=== PATIENT | female | born 1980 | race Caucasian/White ===

== ENCOUNTER 2024-01-22 23:14 | Emergency (ER) | payer SELFPAY ==
[2024-01-22 23:23] VITALS: BP 136/90; PULSE 80; RESP 16; TEMP 36.9; O2SAT 98; BMI 35.4
--- NOTE | 2024-01-22 23:51 | CRLHL7_ITS ---
For Patients: As a result of the Century Cures Act, medical imaging exams and procedure reports are released immediately into your electronic medical record. You may view this report before your referring provider. If you have questions, please contact your health care provider. Indication: Dizziness Technique: Noncontrast CT through the head with multiplanar reformats Comparison: None Findings: Brain: No acute hemorrhage. No acute infarct. No significant mass effect or midline shift. No gross evidence of a mass lesion or cerebral edema. Ventricles: No acute abnormality appreciated. Orbits, sinuses, mastoids: No acute abnormality appreciated. Calvarium and soft tissues: No acute abnormality appreciated. Impression: No acute abnormality appreciated. Please note that all CT scans at this facility use dose modulation, iterative reconstruction, and/or weight-based dosing when appropriate to reduce radiation dose to as low as reasonably achievable. Dictated by Gaetano Washington MD @ 01/23/2024 1:25:38 AM (Electronically Signed)
--- NOTE | 2024-01-22 23:57 | ED_ITS ---
HPI - General Adult General Date Seen: 01/22/24 Chief complaint: Neuro Symptoms/Altered Deficit Stated complaint: Nausea, blurred vision, dizzy Time Seen by Provider: 01/22/24 23:51 History of Present Illness HPI narrative: 43-year-old female presenting to the ER today with her for feeling dizzy, lightheaded and having splotchy spots in front of her eyes. She is generally healthy but she has a family history of diabetes in her mother and her grandmother. She has been under some stress lately. She and her own home here in [place]. About a year ago they moved to [place] for new jobs and a been renting there. However her job isn't working also they are moving back here in [place]. They been doing a lot a work on their house as they are moving back in. She notes that she had an anxiety attack a few days ago. This morning she was feeling fine. She and her working on the house. They went to [employer] [facility] and had a little bit a lunch. However after that at about 2:00 p.m. she started feeling dizzy and shaky. She was not having any seizure activity but she just felt little bit shaky in her body. She has had episodes like this in the past off and on for the past 6 months thought that she might have low blood sugar. She ate but did not feel any better. By about 4:00 p.m. in addition to feeling a little bit shaky she also is having some blotchy vision in front of her eyes. She says her sometimes she sees spots and motor I, ?like when you look at a bright light and then look away. ?. She is not having any headache. No vision loss. No nausea. No palpitations. No chest pain. No cough. No shortness of breath. No fever. No abdominal pain. No back pain. Urination has been normal. No swelling in her arms or legs. No rashes. No focal numbness or weakness. PFSH PFS Social History Smoking Status: Never smoker Do you use any of these nicotine containing products: None How often do you have a drink containing alcohol: never AUDIT-C Alcohol total score: 0 Non-prescribed substance use: denies use service: No Exam Narrative: Exam Narrative: Constitutional: Appears well-developed and well-nourished. Alert. Conversant. Non toxic. Very polite. HENT: Head: Atraumatic. Nose: Nose normal. Mouth/Throat: Oral mucosa is clear and moist. no trismus. Pharynx normal. Eyes: Conjunctivae normal. EOM normal. Pupils equal, round, and reactive to light. No scleral icterus. Neck: Normal range of motion. Neck supple. No tracheal deviation present. No JVD Cardiovascular: Normal rate, regular rhythm. No gallop. No friction rub. No murmur heard. Symmetric radial artery pulses Pulmonary/Chest: Effort normal. No stridor. No respiratory distress. No wheezes. No rales. No rhonchi . No tenderness. Abdominal: Soft. Bowel sounds normal. No distension. No mass. No tenderness. No rebound. No guarding. Musculoskeletal: RUE: Normal range of motion. No tenderness. No deformity LUE: Normal range of motion. No tenderness. No deformity RLE: Normal range of motion. No edema. No tenderness. No deformity LLE: Normal range of motion. No edema. No tenderness. No deformity Lymph: No cervical adenopathy. Neurological: Mental status normal. Attention normal. Alert and oriented x3. GCS 15. Memory normal. Speech fluent. Cognition normal. Cranial Nerves intact II-XII except I did not formally test gag or visual acuity. EOMI. Palate elevates symmetrically and tongue protrudes in the midline. Strength: 5/5 trapezius on the right and left 5/5 deltoid on the right and left 5/5 biceps on the right and left 5/5 triceps on the right and left 5/5 policy writer on the right and left 5/5 thumb opposition on the right and le ft 5/5 finger abduction on the right and le ft 5/5 hip flexors (L3) on the right and le ft 5/5 quadriceps (L4) on the right and lef t 5/5 tibialis anterior on the right and l eft 5/5 EHL (L5) on the right and left 5/5 gastrocnemius (S1) on the right and left 5/5 hamstring on the right and left Sensation intact to light touch in both upper extremities (C4-T1) Sensation intact to light touch in Both lower extremities (L4-S1). Finger to nose and coordination normal. Gait normal. Skin: Skin is warm and dry. No rash noted. No pallor. Normal capillary refill. Psychiatric: Normal mood. Normal affect. Endorses some stress lately as [place]. She thinks she had a panic attack a few days ago but today symptoms are dissimilar from that. Const: Vital Signs, click to edit/add: Vital Signs - 24 hr 01/22/24 23:23 Temperature 98.4 F Pulse Rate [Right Radial] 80 Respiratory Rate 16 Blood Pressure [Ri ght Upper Arm] 136/90 H Pulse Oximetry 98 Oxygen Delivery Me thod Room Air Course Vital Signs Vital signs: Initial Vital Signs Temperature 98.4 F 01/22/24 23:23 Temperature Source Temporal Artery Scan 01/22/24 23:23 Pulse Rate 80 01/22/24 23:23 Pulse Rhythm Regular 01/22/24 23:23 Respiratory Rate 16 01/22/24 23:23 Blood Pressure 136/90 H 01/22/24 23:23 Blood Pressure Mean 105 01/22/24 23:23 Pulse Oximetry 98 01/22/24 23:23 Oxygen Delivery Method Room Air 01/22/24 23:23 Vital Signs Temperature 98.4 F 01/22/24 23:23 Pulse Rate 80 01/22/24 23:23 Respiratory Rate 16 01/22/24 23:23 Blood Pressure 136/90 H 01/22/24 23:23 Pulse Oximetry 98 01/22/24 23:23 Oxygen Delivery Method Room Air 01/22/24 23:23 Temperature 98.4 F 01/22/24 23:23 Pulse Rate 80 01/22/24 23:23 Respiratory Rate 16 01/22/24 23:23 Blood Pressure 136/90 H 01/22/24 23:23 Pulse Oximetry 98 01/22/24 23:23 Oxygen Delivery Method Room Air 01/22/24 23:23 Medical Decision Making MDM Narrative Medical decision making narrative: Pleasant 43-year-old female presenting to the ER today with shakiness, generalized weakness, feeling somewhat lightheaded, also with blotchy spots in front of the vision of both of her eyes. Differential is broad. She has no hypoglycemia. Glucose is 178 on a grand check. This is not a fasting glucose. Differential would include electrolyte disturbance, anemia. She is not having any clear fever but consider possible infection. Also consider coronary arrhythmia or ischemia. No focal deficits to suggest stroke. She is not having any nystagmus on my exam or ataxia to suggest a cerebellar infarct. However with the visual symptoms and neuro symptoms will obtain head CT. Discussed with my partner Dr. Drummond who will follow-up on the results of her workup. Clinical impression 1. Dizziness
[2024-01-23 00:21] LABS: Appearance Urine Clear (Clear); Bilirubin Urine Negative (Negative); Blood Urine Negative (Negative); Color Urine Yellow (Yellow); Glucose Urine Negative (Negative); Ketones Urine Negative (Negative); Leukocyte Esterase Urine Negative (Negative); Nitrite Urine Negative (Negative); Protein Urine Negative (Negative); Urobilinogen Urine 0.2 (0.2-1.0)
[2024-01-23 00:27] LABS: RBC Urine 0-2 (0-2); Squamous Epithelial Cell Urine Few (None-Few); WBC Urine 0-2 (0-5)
[2024-01-23 00:46] LABS: Chloride* 105 mmol/L (96-114); Potassium* 3.6 mmol/L (3.6-5.1); Sodium* 138 mmol/L (135-149)
[2024-01-23 00:49] LABS: Anion Gap 8 mEq/L (7-15); Blood Urea Nitrogen* 8 mg/dL (5-24); Carbon Dioxide* 25 mmol/L (20-32); Creatinine* 0.5 mg/dL (0.5-1.5); Est. Creatinine Clearance* 122.49; Estimated Glomerular Filt Rate 121 ml/min
[2024-01-23 00:50] LABS: Calcium* 9.3 mg/dL (8.4-10.6); Glucose* 166 mg/dL (60-115)
[2024-01-23 01:10] LABS: Troponin I* < 0.01 ng/mL (0.01-0.04)
[2024-01-23 01:11] VITALS: BP 117/83; PULSE 56; RESP 16; O2SAT 95
[2024-01-23 01:15] LABS: Basophils Absolute Auto 0.02 K/uL (0.00-0.30); Basophils Percent Auto 0.3 % (0.0-3.0); Eosinophils Absolute Auto 0.12 K/uL (0.00-0.50); Eosinophils Percent Auto 1.8 % (0.0-7.0); Hematocrit 39.8 % (33.0-51.0); Hemoglobin* 13.7 gm/dL (12.0-16.0); Immature Granulocytes Abs Auto 0.02 K/uL (0.00-0.30); Immature Granulocytes Pct Auto 0.3 %; Lymphocytes Absolute Auto 2.66 K/uL (0.90-2.90); Lymphocytes Percent Auto 39.2 % (20-44); Mean Corpuscular HGB Conc 34 gm/dL (32-36); Mean Corpuscular Hemoglobin 33 pg (26-34); Mean Corpuscular Volume 97 fL (80-100); Neutrophils Absolute Auto 3.29 K/uL (1.7-7.0); Neutrophils Percent Auto 48.4 % (42.0-72.0); Platelet Count* 208 K/uL (140-440); RDW Coefficient of Variation % 11.8 % (11.5-15.5); White Blood Count* 6.79 K/uL (4.50-11.00)
[2024-01-23 01:19] LABS: Slide Review Reflex No
== END 2024-01-23 01:52 | disposition home or self-care (01) ==
PROVIDERS: Emergency Provider Emergency Medicine
DX: R42 Dizziness and giddiness (principal)
CPT/HCPCS: 36415; 70450; 80048; 81001; 84484; 85025; 93005; 99283; 99284

== ENCOUNTER 2025-02-04 17:45 | Emergency (ER) | payer BC, SELFPAY ==
--- OUTSIDE RECORDS SUMMARY | 2024-02-16 04:30 | XMS_ITS ---
Author Organization [facility] , [place] Address [address] [facility] [address] [place] [id number] Care Team Providers Care Clerical Support Name Role Phone LEIDY ESPINOZA Unavailable [phone] Encounters Encounter Location Date Provider Diagnosis [facility] [address] [facility] [address] [place] [address] 02/16/2024 LEIDY ESPINOZA Plan Of Treatment No Information Progress Notes * POOJA AMOSOB:1980 (44 yo F)Acc No.[id number]:02/16/2024 Patient: IGOR BONE Provider: Dilma Espinoza M.D. :1980 A ge:43 Y S ex:Female Date:02/16/2024 Address:[address], [id number] Subjective: * Chief Complaints: * * Medical History: Objective: * Vitals: Assessment: Plan: * Treatment: * * Electronic signature of ELAINE ESPINOZA MD on 02/04/2025 at 08:07 PM CDT Sign off status: Pending * Provider: Dilma Espinoza M.D. Date: 04/17/2023 Generated for Gill jenkins/Dutch/eTbraydensmsoumya on: 08:07 PM CDT
[2025-02-04 18:10] VITALS: BP 123/87; PULSE 76; RESP 16; TEMP 36.8; O2SAT 97; BMI 36.1
[2025-02-04 18:24] LABS: Appearance Urine Clear (Clear)
--- NOTE | 2025-02-04 19:13 | CRLHL7_ITS ---
For Patients: As a result of the Century Cures Act, medical imaging exams and procedure reports are released immediately into your electronic medical record. You may view this report before your referring provider. If you have questions, please contact your health care provider. INDICATION: Left pelvic pain. History of hysterectomy 15 years ago. COMPARISON: None. TECHNIQUE: Ultrasound pelvis transvaginal for better assessment or to better visualize the ovaries. Real time sonographic images with color Doppler and spectral analysis of the ovaries were obtained. FINDINGS: The uterus is surgically absent. The vaginal cuff appears grossly unremarkable. The right ovary measures 2.6 x 1.9 x 2.2 cm. Arterial and venous waveforms detected. Unremarkable sonographic appearance. The left ovary measures 3.0 x 1.8 x 2.1 cm. Arterial and venous waveforms detected. Unremarkable sonographic appearance. No free fluid in the pelvic cul-de-sac. IMPRESSION: 1. Normal sonographic appearance of the ovaries without evidence of torsion. 2. Surgically absent uterus. Dictated by Jodie Pena MD @ 02/04/2025 7:43:01 PM (Electronically Signed)
--- NOTE | 2025-02-04 19:39 | ED.GENADULT ---
HPI - General Adult General Date Seen: 02/04/25 Chief complaint: Abdominal Pain Stated complaint: Lower abdominal pain Time Seen by Provider: 02/04/25 18:57 History of Present Illness HPI narrative: Patient is a 44-year-old woman status post hysterectomy, history of ovarian cyst, who presents with left lower quadrant pain which started earlier today and has been getting worse. It has been associated with nausea, she says she has not eaten anything all day because she has been nauseated. No vomiting. No fevers. She thinks it feels like her past ovarian cyst. No other abdominal surgeries, denies other health problems. Related Data Home Medications ?Medication ?Instructions ?Recorded ?Confirmed No Known Home Medications 02/04/25 02/04/25 Allergies Allergy/AdvReac Type Severity Reaction Status Date / Time No Known Drug Allergies Allergy Verified 02/04/25 18:12 Review of Systems Status of ROS: Reports: 6 or more systems reviewed and unremarkable except as noted in History and below PFSH [facility] Social History Smoking Status: Never smoker Do you use any of these nicotine containing products: None How often do you have a drink containing alcohol: never AUDIT-C Alcohol total score: 0 Non-prescribed substance use: denies use service: No Exam Narrative: Exam Narrative: Vital signs reviewed In general, alert, nontoxic manage woman. She looks comfortable. Head: Normocephalic, atraumatic. Eyes: Sclera clear. Pupils equal and reactive. ENT: Mucous membranes moist. Neck: Supple without adenopathy. Heart: Regular rate and rhythm without murmur. Lungs: Clear. No increased work of breathing, crackles or wheezes. Abdomen: Soft, nondistended. Some left lower quadrant, primarily pelvic tenderness without rebound guarding or rigidity. Extremities: Well perfused, pulses intact. No significant edema. Neurologic: Alert, conversant. Speech fluent, face symmetric. Moves all extremities equally. Skin: Warm, dry well perfused. Affect: Normal. Const: Vital Signs, click to edit/add: Vital Signs - 24 hr 02/04/25 18:10 Temperature 98.3 F Pulse Rate [Pulse Oximeter] 76 Respiratory Rate 16 Blood Pressure [Ri ght Upper Arm] 123/87 Pulse Oximetry 97 Oxygen Delivery Me thod Room Air Course Course ED Course: Patient presents with left pelvic pain, lower quadrant pain for 1 day. She does not have a uterus. Diagnostic considerations would include ovarian cyst or torsion, ovarian abscess, diverticulitis, urinary tract infection, kidney stone, among others. I think it is reasonable to start with a pelvic ultrasound, will do some basic labs. Urinalysis was obtained in triage and was largely unremarkable, trace intact blood without any red or white cells. I reviewed labs. These are unremarkable, normal white blood cell count, CRP, electrolytes. Ultrasound read by Radiology as negative, good blood flow to her ovaries and no obvious cyst. I did proceed to CT scan, I reviewed her CT scan, she does seem to have some thickened loops of small bowel although I do not see any dilated loops. No free air, no hydronephrosis. Radiology report reviewed, they note this is consistent with enteritis with some thickening of small bowel loops. She had a L of saline here as well as Toradol 15 mg IV and Zofran 4 mg IV. She does feel she needs something stronger for pain at home so I will give her a few doses of oxycodone by [facility]. She requested additional nausea medicine here and is getting some Reglan, I will prescribe Zofran for home. Discussed the diagnosis and expected course. If she is feeling worse rather than gradually improved, return to the ER. Otherwise, see primary care if not improving over the next week. She requested and was given a work note. Vital Signs Vital signs: Initial Vital Signs Temperature 98.3 F 02/04/25 18:10 Temperature Source Temporal Artery Scan 02/04/25 18:10 Pulse Rate 76 02/04/25 18:10 Respiratory Rate 16 02/04/25 18:10 Blood Pressure 123/87 02/04/25 18:10 Blood Pressure Mean 99 02/04/25 18:10 Blood Pressure Position Sitting 02/04/25 18:10 Pulse Oximetry 97 02/04/25 18:10 Oxygen Delivery Method Room Air 02/04/25 18:10 Vital Signs Temperature 98.3 F 02/04/25 18:10 Pulse Rate 76 02/04/25 18:10 Respiratory Rate 16 02/04/25 18:10 Blood Pressure 123/87 02/04/25 18:10 Pulse Oximetry 97 02/04/25 18:10 Oxygen Delivery Method Room Air 02/04/25 18:10 Temperature 98.3 F 02/04/25 18:10 Pulse Rate 76 02/04/25 18:10 Respiratory Rate 16 02/04/25 18:10 Blood Pressure 123/87 02/04/25 18:10 Pulse Oximetry 97 02/04/25 18:10 Oxygen Delivery Method Room Air 02/04/25 18:10 Medications Administered Medications: Discontinued Medications Generic Name Dose Route Start Last Admin Trade Name Freq PRN Reason Stop Dose Admin Sodium Chloride 1,000 mls @ 1,000 mls/hr 02/04/25 19:15 02/04/25 21:00 0.9 % Sodium Chloride 1000 Ml IV 02/04/25 20:14 Infused .Q1H ROLO Infusion Ketorolac Tromethamine 15 mg 02/04/25 19:14 02/04/25 19:55 Ketorolac 15 Mg/Ml Inj IVP 02/04/25 19:15 15 mg ONCE ONE Administration Metoclopramide HCl 10 mg 02/04/25 20:49 02/04/25 20:54 Metoclopramide Hcl 5 Mg/Ml Inj IVP 02/04/25 20:50 10 mg ONCE ONE Administration Ondansetron HCl 4 mg 02/04/25 19:14 02/04/25 19:55 Ondansetron 2 Mg/Ml Inj IVP 02/04/25 19:15 4 mg ONCE ONE Administration Medical Decision Making Lab Data Lab results reviewed: Yes I reviewed the patient's lab results Labs: Lab Results 02/04/25 02/04/25 Range/Units 18:19 19:40 WBC 7.43 (4.50-11.00) K/uL RBC 4.51 (4.00-5.20) m/uL Hgb 14.9 (12.0-16.0) gm/dL Hct 43.4 (33.0-51.0) % MCV 96 (80-100) fL MCH 33 (26-34) pg MCHC 34 (32-36) gm/dL RDW Coeff of Marcello 11.8 (11.5-15.5) % Plt Count 225 (140-440) K/uL Neut % (Auto) 48.1 (42.0-72.0) % Lymph % (Auto) 40.9 (20-44) % [place] % (Auto) 9.3 (0.0-11.0) % Eos % (Auto) 1.1 (0.0-7.0) % Baso % (Auto) 0.5 (0.0-3.0) % Neut # (Auto) 3.57 (1.7-7.0) K/uL Lymph # (Auto) 3.04 H (0.90-2.90) K/uL [place] # (Auto) 0.70 (0.00-0.90) K/UL Eos # (Auto) 0.08 (0.00-0.50) K/uL Baso # (Auto) 0.04 (0.00-0.30) K/uL Abs Immat Gran (auto) 0.01 (0.00-0.30) K/uL Imm/Tot Granulo (auto) 0.1 % Sodium 135 (135-149) mmol/L Potassium 3.8 (3.6-5.1) mmol/L Chloride 100 (96-114) mmol/L Carbon Dioxide 27 (20-32) mmol/L Anion Gap 8 (7-15) mEq/L BUN 13 (5-24) mg/dL Creatinine 0.7 (0.5-1.5) mg/dL Estimated Creat Clear 86.61 Estimated GFR 111 ml/min Glucose 85 (60-115) mg/dL Calcium 9.4 (8.4-10.6) mg/dL C-Reactive Protein < 0.5 L (0.5-1.0) mg/dL Urine Color Yellow (Yellow) Urine Appearance Clear (Clear) Urine pH 5.5 (5.0-8.5) Ur Specific [place] <= 1.005 (1.000-1.030) Urine Protein Negative (Negative) Urine Glucose (UA) Negative (Negative) Urine Ketones Negative (Negative) Urine Blood Trace-intact A (Negative) Urine Nitrite Negative (Negative) Urine Bilirubin Negative (Negative) Urine Urobilinogen 0.2 (0.2-1.0) Ur Leukocyte Esterase Negative (Negative) Urine RBC 0-2 (0-2) Urine WBC 0-2 (0-5) Urine WBC Clumps Moderate A (None) Ur Squamous Epith Cells None (None-Few) Urine Bacteria None (None) Imaging Data CT scan - abdomen: Attestation: I have reviewed the pertinent imaging results. Radiologist's impression: Patient: Tressa Mac MR#: [id number] : 1980 Acct:[id number] Loc: ED Service Date: 02/04/[address]: Ordering Physician: Veronique Phan M.D. Date of Service: 02/04/25 Procedure(s): CT abdomen pelvis w con Accession Number(s): [id number] cc: Veronique Phan M.D.; Provider,Not a Local~ For Patients: As a result of the Century Cures Act, medical imaging exams and procedure reports are released immediately into your electronic medical record. You may view this report before your referring provider. If you have questions, please contact your health care provider. INDICATION: Left lower quadrant pain x 12 hours, radiates to middle, nausea. History of hysterectomy and appendectomy. TECHNIQUE: CT of the abdomen and pelvis acquired with 100 cc Isovue 370 IV contrast. Coronal and sagittal reconstructions. COMPARISON: Same day pelvic ultrasound. FINDINGS: Lower chest: Minimal bibasilar atelectasis or scarring. Liver: Normal in size and attenuation. No suspicious masses. Gallbladder and bile ducts: Unremarkable. No biliary dilation. Spleen: Unremarkable. Pancreas: Unremarkable. Adrenal glands: Unremarkable. Kidneys, Ureters, and Bladder: Symmetric enhancement. No hydronephrosis. No obstructing urinary calculi. Mild circumferential bladder wall thickening. Reproductive organs: Hysterectomy. Unremarkable adnexa. GI tract/Peritoneum: The stomach is grossly unremarkable. There is wall thickening of proximal small bowel loops in the left upper quadrant suggesting a nonspecific enteritis. No evidence of bowel obstruction. Moderate stool burden. Appendectomy. No intraperitoneal free air or fluid. Vasculature: Abdominal aorta is normal in caliber. Mesenteric arteries appear patent. Lymph nodes: No lymphadenopathy. Abdominal Wall: Small fat containing umbilical hernia. Bones: Unremarkable for age. IMPRESSION: 1. Findings suggestive of a nonspecific enteritis involving proximal small bowel loops. 2. Mild bladder wall thickening. Correlate with urinalysis. 3. No other acute findings in the abdomen or pelvis. Please note that all CT scans at this facility use dose modulation, iterative reconstruction, and/or weight-based dosing when appropriate to reduce radiation dose to as low as reasonably achievable. Dictated by Jodie Pena MD @ 02/04/2025 8:19:28 PM Discharge Plan Discharge Clinical Impression: Enteritis Patient Disposition: Home, Self-Care Condition: Stable Instructions: Enteritis (ED) Additional Instructions: I would recommend that you take ibuprofen 400 mg plus Tylenol 1000 mg 3 times daily with a little something in your stomach. If needed, oxycodone for more severe pain. Zofran if needed for nausea. Symptoms should gradually improve over the next several days. If you have severe pain, fevers, bloody stools, or other worsening, return to the emergency department for re-evaluation. Otherwise, see your primary clinic in the next week if not improving. I would suggest clear liquids for the next day or so, advance diet as able. Prescriptions: No Action No Known Home Medications Follow Up/Referrals: Provider,Not a Local [Primary Care Provider, Family Practice] Stand Alone Forms: [employer] Info Instructions
--- NOTE | 2025-02-04 19:48 | CRLHL7_ITS ---
For Patients: As a result of the Century Cures Act, medical imaging exams and procedure reports are released immediately into your electronic medical record. You may view this report before your referring provider. If you have questions, please contact your health care provider. INDICATION: Left lower quadrant pain x 12 hours, radiates to middle, nausea. History of hysterectomy and appendectomy. TECHNIQUE: CT of the abdomen and pelvis acquired with 100 cc Isovue 370 IV contrast. Coronal and sagittal reconstructions. COMPARISON: Same day pelvic ultrasound. FINDINGS: Lower chest: Minimal bibasilar atelectasis or scarring. Liver: Normal in size and attenuation. No suspicious masses. Gallbladder and bile ducts: Unremarkable. No biliary dilation. Spleen: Unremarkable. Pancreas: Unremarkable. Adrenal glands: Unremarkable. Kidneys, Ureters, and Bladder: Symmetric enhancement. No hydronephrosis. No obstructing urinary calculi. Mild circumferential bladder wall thickening. Reproductive organs: Hysterectomy. Unremarkable adnexa. GI tract/Peritoneum: The stomach is grossly unremarkable. There is wall thickening of proximal small bowel loops in the left upper quadrant suggesting a nonspecific enteritis. No evidence of bowel obstruction. Moderate stool burden. Appendectomy. No intraperitoneal free air or fluid. Vasculature: Abdominal aorta is normal in caliber. Mesenteric arteries appear patent. Lymph nodes: No lymphadenopathy. Abdominal Wall: Small fat containing umbilical hernia. Bones: Unremarkable for age. IMPRESSION: 1. Findings suggestive of a nonspecific enteritis involving proximal small bowel loops. 2. Mild bladder wall thickening. Correlate with urinalysis. 3. No other acute findings in the abdomen or pelvis. Please note that all CT scans at this facility use dose modulation, iterative reconstruction, and/or weight-based dosing when appropriate to reduce radiation dose to as low as reasonably achievable. Dictated by Jodie Pena MD @ 02/04/2025 8:19:28 PM (Electronically Signed)
[2025-02-04 19:52] LABS: Hematocrit* 43.4 % (33.0-51.0); Hemoglobin* 14.9 gm/dL (12.0-16.0); Immature Granulocytes Abs Auto 0.01 K/uL (0.00-0.30); Immature Granulocytes Pct Auto 0.1 %; Lymphocytes Absolute Auto 3.04 K/uL (0.90-2.90); Mean Corpuscular HGB Conc 34 gm/dL (32-36); Mean Corpuscular Hemoglobin 33 pg (26-34); Mean Corpuscular Volume 96 fL (80-100); RDW Coefficient of Variation % 11.8 % (11.5-15.5); Red Blood Count* 4.51 m/uL (4.00-5.20); White Blood Count* 7.43 K/uL (4.50-11.00)
[2025-02-04 19:53] LABS: Slide Review Reflex No
[2025-02-04] MEDS: ONDANSETRON 2 MG/ML inj 4 MG IVP (19:55)
--- OUTSIDE RECORDS SUMMARY | 2025-02-04 20:07 | XMS_ITS | Clinical Summary ---
Author Organization [employer] [facility] [employer] [facility] Address [address] [place] [id number] Care Team Providers Care Emergency Planner Name Role Phone [facility] Allergies No known active allergies Medications No known medications Active Problems Problem Noted Date Diagnosed Date S/P hysterectomy 01/15/2014 Major depression, recurrent 06/19/2010 Anemia 07/04/2008 Unspecified contraceptive management 06/23/2007 Dysthymic disorder 05/01/2007 Iron deficiency anemia, unspecified 05/14/2006 Other thalassemia 05/14/2006 Issue of repeat prescriptions Resolved Problems Problem Noted Date Diagnosed Date Resolved Date Dysmenorrhea 01/03/2014 02/01/2014 Pelvic pain in female 07/30/20122013 Premenopausal menorrhagia 07/30/2012 Thickened endometrium 07/16/20112013 Abdominal pain in 07/20/2008 09/25/2009 Contractions, without cervical change 07/20/19 09 09/25/2009 Supervision of high-risk 07/10/2008 09/25/2009 labor 07/03/2008 09/25/2009 Depressive disorder, not elsewhere classified 05/14/19 07 05/01/2007 Immunizations Immunization Administration Dates Next Due HepA-HepB (Twinrix) 02/16/2015 Influenza, IIV3 (Age >=3 years) 03/14/2008 Influenza, IIV4 02/16/2015 Family History Medical History Relation Name Comments Unknown Father Cancer Maternal Grandfather bone ca ncer Diabetes Maternal Grandmother Diabetes Mother Unknown Paternal Grandfather Unknown Paternal Grandmother Cancer-breast Sister 2 Diabetes Sister 3 Good Health Son 2 x3 Relation Name Status Comments Brother Alive x2 Father Maternal Grandfather Maternal Grandmother Mother Alive Paternal Grandfather Paternal Grandmother Sister 1 Alive x2 Sister 2 Sister 3 Son 1 Alive x3 Son 2 Social History Tobacco Use Types Packs/Day Years Used Date Smoking Tobacco: Former Cigarettes Smokeless Tobacco: Never Tobacco Cessation:Counseling Given: Yes Comments:quit ~1999 Alcohol Use Standard Drinks/Week Comments No 0 (1 standard drink = 0.6 oz pur e alcohol) 2 per year Comments No Sex and Gender Information Value Date Recorded Sex Assigned at Not on file Legal Sex Female 6:31 AM [employer] Gender Identity Not on file Sexual Orientation Not on file Occupation Industry Job Start Date Job End Date HOMEMAKER Not on file Not on file Not on file Not on file Not on file Not on file Not on file Obstetrics History Para Term AB IAB SAB Ectopic Multiple Livin g Live Births 5 4 4 1 1 4 2 Date Outcome GA Total Labor Labor//3rd Weight Sex Type Anes PTL Jillian A1 A5 Name Clin 1999 Term 40w 0d 4.08 kg (9 lb) M Vag Barry Comments:CVC edge bander hand 2003 Term 40w 0d 4.08 kg (9 lb) M Vag Warren Drevl ow Delivery Location:[facility] 2005 Term 40w 0d 3.63 kg (8 lb) M VAGINA L YADIRA Y Livin g 8 9 Jamaal Drevl ow Delivery Location:[facility] Comments:Precip, prote inuria 2006 SAB 2008 Term 37w 0d 2.89 kg (6 lb 6 oz) F Vag Livin g 9 9 Dee Drevl ow Delivery Location:[facility] Comments:PPTL Comments Blood type O positive. Last Filed Vital Signs Vital Sign Reading Time Taken Comments Blood Pressure 117/77 09/29/2017 5:51 PM CDT Pulse 76 09/29/2017 5:51 PM CDT Temperature 36.7 C (98 F) 09/29/2017 5:51 PM CDT Respiratory Rate 18 09/29/2017 5:51 PM CDT Oxygen Saturation 100% 09/29/2017 5:51 PM CDT Inhaled Oxygen Concentration - - Weight 85.5 kg (188 lb 6.4 oz) 09/29/2017 5:51 P M CDT Height 160 cm (5' 3) 09/29/2017 5:51 PM CDT Body Mass Index 33.37 09/29/2017 5:51 PM CDT Plan of Treatment Health Maintenance Due Date Last Done Comments Tetanus booster 1993 Depression screening for age 12+ 1994 HPV series for age 9-45 (1 - 3-dose SCDM series) 2009 Pap test for age 21-65 07/16/2014 2, 11/07/2008, 01/22/2007, Additional history exists Hepatitis B series for 19+ (2 of 3 - Hep B Twinrix 3-dose series) 03/16/2015 02/16/2015 BMI (ht and wt on same day) for age 18+ 10/08/2016 10/09/2015 COVID-19 vaccine series ( season) 2024 Influenza Vaccine (#1) 2024 02/16/2015, 2007 RSV vaccine for adults or (1 - 1-dose 75+ series) 2057 Hepatitis C screening for age 18-79 Completed 01/23/2015, 11/07/2008 HIV for age 15-65 Completed 02/16/2015, 11/07/2008 Pneumococcal series for age 6-49 Aged Out No longer eligible based on patient's age to complete this topic Procedures Procedure Name Priority Date/Time Associated Diagnosis Comments ANTI HIV 1/2 Routine 02/16/2015 4:40 PM [employer] Screening for STD (sexually transmitted disease) ACUTE HEPATITIS PANEL Add On 01/23/2015 12:52 PM CDT [employer]SULT[employer] THIN PREP PAP SCREEN IMAGED Routine 07/17/2011 11:59 AM CDT Screening for malignant neoplasm of the cervix from Last 3 Months or Most Recently Relevant to Health Maintenance Results * ANTI HIV 1/2 (02/16/2015 4:40 PM [employer]) HIV-1/HIV-2 ANTIBODY Non-Reacti ve Non-Reacti ve 02/17/2015 4:30 PM [employer]ER [facility] Blood specimen (specimen) BLOOD SPECIMEN / Unknown Venipuncture / Unknown 02/16/2015 4:40 PM [employer]ER 02/16/2015 4:40 PM G[employer] PL[employer] DISPATCHER Narrative [facility] - 02/17/2015 4:30 PM [employer]ER HIV-1 p24 and HIV-1/HIV-2 Ab not detected Olvin Dallas Bassamemilianareji FERNANDEZ SEND OUTS Final Res ult [facility] [address] [place] [address], [place] * ACUTE HEPATITIS PANEL (01/23/2015 12:52 PM CDT) HEPATITIS C ANTIBODY Non-Reactive Non-Reactive 01/24/2015 2:06 PM CDT [facility] IGM ANTI HAV Non-Reactive Non-Reactive 01/24/2015 2:06 PM CDT [facility] HBSAG Nonreactive Nonreactive 01/24/2015 2:06 PM CDT [facility] IGM ANTI HBC Non-Reactive Non-Reactive 01/24/2015 2:06 PM CDT [facility] Blood specimen (specimen) BLOOD SPECIMEN / Unknown Add On / Unknown 01/23/2015 12:52 PM CDT 01/23/2015 3:02 PM CDT Narrative [facility] - 01/24/2015 2:06 PM CDT Anti-HBc IgM not detected. Does not exclude the possibility of exposure to or infection with HBV. Nahun Santana MD SEND OUTS Final Result Performing Organization Address City/[facility]/ZIP Co de Phone Number [facility] [address] [place] [address], [place] * [employer] PORTAL CONSULTANT THIN PREP PAP SCREEN IMAGED (07/17/2011 11:59 AM CDT) CYTOLOGY CYTOPATHOLOGY REPORT [facility] Status: Final Status [id number] CLINICAL INFORMATION Last Date of LMP :05/27/2011 Last Pap Date :11/07/2008 Last Pap Result :NIL ABN [place]/Bx Past 5 YRS :None Hormone Usage :None Menstrual Status :Irregular Periods [place]/Bx done today :No Additional Information :None given HPV Request :HPV if ASCUS SPECIMEN SOURCE :Cervical/vaginal ThinPrep Vial, screening SPECIMEN ADEQUACY :Satisfactory for evaluation Endocervical component present. INTERPRETATION/RES ULT Negative for intraepithelial lesion or malignancy (NIL) Cytology 1st Screener :zulma Signed by :zulma This specimen was screened by the FDA approved ThinPrep Imaging System and manually reviewed. NOTE: The Pap test is a screening technique, not a diagnostic procedure. It is used primarily to screen for squamous cancers and precursor lesions. Published studies have shown that it is subject to both false negative and false positive results. The pap test should not be used as the sole means to diagnose or exclude pre-malignant and malignant lesions. COLLECTED:07/17/11 ACCESSIONED: 07/18/11 SIGNED: 07/22/11 [facility] PAP [place] CODE NIL [facility] Tissue specimen (specimen) (Cervical/Vagina l) 07/17/2011 11:59 AM CDT 07/17/2011 11:58 AM CDT us Olvin Sprague DO PATHOLOGY/CYTOLOGY Final Result [facility] INTERNAL ZIP [id number] [address] [place] [address] from Last 3 Months or Most Recently Relevant to Health Maintenance Insurance [id number] [place] [address] [place] [id number] [facility] [place] [place] [id number] [employer] [id number] [place] [id number] [facility] Advance Directives * Full Code (Latest Code Status on File) Date Activated Date Inactivated Comments 01/13/2014 9:17 AM 01/13/2014 2:27 PM * Full Code Date Activated Date Inactivated Comments 08/03/2012 5:48 AM 08/03/2012 3:20 PM * Full Code Date Activated Date Inactivated Comments 07/19/2008 6:03 AM 07/21/2008 6:12 PM * Full Code Date Activated Date Inactivated Comments 07/03/2008 3:22 AM 07/05/2008 6:10 PM Care Teams Emergency Planner Relationship Specialty Start Date End Date [facility] - PCP - General 02/05/21
--- OUTSIDE RECORDS SUMMARY | 2025-02-04 20:07 | XMS_ITS | Patient Health Record ---
Author Organization [facility] Address [address] [facility] [address] [place] [address] Care Team Providers Care Print Line Feeder Name Role Phone LEIDY ESPINOZA Unavailable [phone] Reason For Referral No Information Encounters Encounter Location Date Provider Diagnosis [facility] [address] [facility] [address] [place] [address] 02/16/2024 LEIDY ESPINOZA Plan Of Treatment No Information Insurance Providers Payer Name Payer Address Payer Phone Subscriber Number Group Number Insured Name Patient Relationship to Insured Coverage Start Date Coverage End Date WILLIE HOPPER, AAL [address] [place] [address] [id number] IGOR AMOS Self - patient is the insured
[2025-02-04 20:23] LABS: Chloride* 100 mmol/L (96-114); Potassium* 3.8 mmol/L (3.6-5.1); Sodium* 135 mmol/L (135-149)
[2025-02-04 20:27] LABS: Anion Gap 8 mEq/L (7-15); Blood Urea Nitrogen* 13 mg/dL (5-24); Calcium* 9.4 mg/dL (8.4-10.6); Carbon Dioxide* 27 mmol/L (20-32); Creatinine* 0.7 mg/dL (0.5-1.5); Est. Creatinine Clearance* 86.61; Estimated Glomerular Filt Rate 111 ml/min; Glucose* 85 mg/dL (60-115)
[2025-02-04] MEDS: METOCLOPRAMIDE HCL 5 MG/ML INJ 10 MG IVP (20:54)
== END 2025-02-04 21:16 | disposition home or self-care (01) ==
PROVIDERS: Emergency Provider Emergency Medicine
DX: K52.9 Noninfective gastroenteritis and colitis, unspecified (principal); Z90.710 Acquired absence of both cervix and uterus; Z90.49 Acquired absence of other specified parts of digestive tract
CPT/HCPCS: 36415; 74177; 76830; 80048; 81001; 85025; 86140; 93976; 96361; 96374; 96375; 99284; 99285; J1885; J2405; J2765; J7030; Q9967